=== PATIENT | male | born 1955 | race Caucasian/White ===

== ENCOUNTER 2022-01-06 16:49 | Emergency (ER) | payer MEDICARE, OTHER ==
[~2022-01-06] VITALS: Ht 185.4 cm; Wt 120.3 kg
[2022-01-06 17:13] VITALS: BP 153/121
[2022-01-06 17:17] LABS: BILIRUBIN,URINE NEGATIVE (NEGATIVE); CLARITY,URINE CLOUDY; COLOR,URINE YELLOW; GLUCOSE, URINE (UA) NEGATIVE (NEGATIVE); KETONES,URINE TRACE (NEGATIVE); LEUKOCYTE ESTERASE ,URINE NEGATIVE (NEGATIVE); NITRITE,URINE NEGATIVE (NEGATIVE); PROTEIN,URINE NEGATIVE (NEGATIVE)
[2022-01-06 17:26] LABS: BACTERIA,URINE TRACE /HPF; SQUAMOUS EPITHELIAL CELL,UR RARE /HPF; WBC,URINE RARE /HPF
--- NOTE | 2022-01-06 17:28 | ED General ---
General Chief Complaint: - Reproductive Stated Complaint: BLOOD IN URINE History of Present Illness Date Seen by Provider: January 06, 2022 Time Seen by Provider: 17:05 Initial Comments 66 year old male presents today per recommendation by [facility] following blood in his urine today. He reports recently flying in from [place] to visit a friend and look into buying a home in the [facility]. Upon arriving he reports having generalized fatigue, cough, shortness of breath with exertion, feeling febrile (never checked), and overall "not feeling right." This led him going to urgent care at [facility] yesterday at which point a urinalysis showed blood in his urine. 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 Later on when I was talking to the patient he reported filing a callous off his foot and having a sore that wouldn't stop bleeding from that. His friend was worried that it may be infected due to his history of MRSA infection. Towards the end of the exam he mentioned being hospitalized for heart events 3-4 times in the last few months in [place]. He admits to marijuana use and that he is known to snort meth occasionally with his most recent use yesterday upon urging by his friend that it would help his fatigue. (EMERY DUMONT) Initial Comments This is 66-year-old gentleman flew into the area from [place] several days ago. He did not bring his Eliquis and his last dose of Eliquis was the day before flying. 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 He guerline lly wears oxygen at 3 L at home but he did not bring an oxygen tank or concentrator with him. He has been more short of breath over the past few days and is having trouble even ambulating to the restroom. He admits to polysubstance abuse including marijuana and methamphetamines as recently as a couple of days ago. His visit to the [facility] walk-in clinic was 2 days ago, and he was advised to present to the emergency room at that time. He delayed his ER visit until today. He reports the only medications he has been taking since his arrival to [place] are aspirin and metoprolol. (TAD JEAN BAPTISTE MD) Allergies and Home Medications Allergies Coded Allergies: No Allergy Information Available (Unverified , 01/06/22) Patient Home Medication List Home Medication List Reviewed: Yes (TAD JEAN BAPTISTE MD) Review of Systems Review of Systems Constitutional: fever (never confirmed), malaise, weakness EENTM: No hearing loss, No vision loss, No throat pain Respiratory: cough, dyspnea on exertion; No short of breath Gastrointestinal: No abdominal pain, No constipation, No diarrhea, No nausea, No vomiting Genitourinary: No discharge, No dysuria; frequency (increased), hematuria (reported to him at [facility] but unable to see it himself) Skin: change in color (darkened skin on distal andrade), other (area that won't stop bleeding on 2nd phalanx of right foot) Psychiatric/Neurological: Denies Headache; Numbness (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) Hematologic/Lymphatic: No Symptoms Reported Immunological/Allergic: no symptoms reported (EMERY DUMONT) Past Afgrgfr-Ngpaad-Rasoqz Hx Patient Social History Tobacco Use?: Yes Tobacco type used: Cigarettes Smoking Status: Current Someday Smoker Use of E-Cig and/or Vaping dev: No Substance use?: Yes Substance type: Methamphetamine, Marijuana Substance frequency: Daily Alcohol Use?: No Pt feels they are or have been: No (EMERY DUMONT) Tobacco Use?: Yes Tobacco type used: Cigarettes Substance use?: Yes Additional substance use comme: UDS + FOR PCP, METH/AMPHETAMINES, THC ON 01/06/22 Substance frequency: Daily Alcohol Use?: Yes Alcohol Frequency: Couple times a week (DEEPTI RODRÍGUEZ DO) Immunizations Up To Date Influenza Vaccine Up-to-Date: No; Not Current (EMERY DUMONT) Past Medical History Surgeries: Yes (lipoma removal from lateral left chest) Valve Replacement (aortic valve replacement of unspecified type) (EMERY DUMONT) Physical Exam Vital Signs Vital Signs - First Documented 01/06/22 17:13 Temp 36.8 Pulse 79 Resp 22 B/P (MAP) 153/121 (132) Pulse Ox 97 O2 Delivery Room Air (TAD JEAN BAPTISTE MD) Vital Signs Capillary Refill : (EMERY DUMONT) Height, Weight, BMI Height: '" Weight: lbs. oz. kg; BMI Method: General Appearance: No Apparent Distress, Obese Eyes: Bilateral Eye Other (Miosis without response to light bilaterally) HEENT: Pharynx Normal, Moist Mucous Membranes Neck: Non Tender, Supple Respiratory: Lungs Clear, Normal Breath Sounds, No Respiratory Distress Cardiovascular: Regular Rate, Rhythm, Normal Peripheral Pulses, Other (slight ejection murmur at right 2nd intercostal space. Loud S2. ) Gastrointestinal: Normal Bowel Sounds, Non Tender Back: Normal Inspection, No CVA Tenderness, No Vertebral Tenderness Extremity: Normal Capillary Refill, Normal Range of Motion, No Calf Tenderness, Pedal Edema (1+ pitting edema of legs bilaterally with slight thickening and darkening of skin on distal shins bilaterally. ) Neurologic/Psychiatric: Oriented x3, Normal Mood/Affect, journeyman pressman II-XII Norm as Tested, Other (Patient was a poor historian about why he was here. Kept remembering different reasons as to why he was here. When the nurse asked him where he was he reports he didn't know due to not being from the area.) Skin: Warm/Dry, Other (darkening and slight thickening of skin on patients distal shins. Dry feet with thickened yellow nails. Small ulcer with clear margins and no erythema or discharge on dorsal, distal 2nd phalanx of right foot. ) Lymphatic: No Adenopathy (EMERY DUMONT) Progress/Results/Core Measures Suspected Sepsis SIRS Temperature: Pulse: Respiratory Rate: Blood Pressure / Mean: (EMERY DUMONT) Results/Orders Lab Results Laboratory Tests Test 01/06/22 16:53 01/06/22 17:08 01/06/22 17:43 01/06/22 18:05 Range/Units D-Dimer 1.15 H 0.00-0.49 UG/ML Urine Color YELLOW Urine Clarity CLOUDY Urine pH 6.0 5-9 Urine Specific [place] 1.020 1.016-1.022 Urine Protein NEGATIVE NEGATIVE Urine Glucose (UA) NEGATIVE NEGATIVE Urine Ketones TRACE H NEGATIVE Urine Nitrite NEGATIVE NEGATIVE Urine Bilirubin NEGATIVE NEGATIVE Urine Urobilinogen 1.0 < = 1.0 MG/DL Urine Leukocyte Esterase NEGATIVE NEGATIVE Urine RBC (Auto) 1+ H NEGATIVE Urine RBC NONE /HPF Urine WBC RARE /HPF Urine Squamous Epithelial Cells RARE /HPF Urine Crystals NONE /LPF Urine Bacteria TRACE /HPF Urine Casts NONE /LPF Urine Mucus NEGATIVE /LPF Urine Culture Indicated NO Urine Opiates Screen NEGATIVE NEGATIVE Urine Oxycodone Screen NEGATIVE NEGATIVE Urine Methadone Screen NEGATIVE NEGATIVE Urine Propoxyphene Screen NEGATIVE NEGATIVE Urine Barbiturates Screen NEGATIVE NEGATIVE Ur Tricyclic Antidepressants Screen NEGATIVE NEGATIVE Urine Phencyclidine Screen POSITIVE H NEGATIVE Urine Amphetamines Screen POSITIVE H NEGATIVE Urine Methamphetamines Screen POSITIVE H NEGATIVE Urine Benzodiazepines Screen NEGATIVE NEGATIVE Urine Cocaine Screen NEGATIVE NEGATIVE Urine Cannabinoids Screen POSITIVE H NEGATIVE Influenza Type A (RT-PCR) Not Detected Not Detecte Influenza Type B (RT-PCR) Not Detected Not Detecte SARS-CoV-2 RNA (RT-PCR) Not Detected Not Detecte White Blood Count 6.1 4.3-11.0 10^3/uL Red Blood Count 5.09 4.30-5.52 10^6/uL Hemoglobin 15.6 13.3-17.7 g/dL Hematocrit 47 40-54 % Mean Corpuscular Volume 92 80-99 fL Mean Corpuscular Hemoglobin 31 25-34 pg Mean Corpuscular Hemoglobin Concent 33 32-36 g/dL Red Cell Distribution Width 13.5 10.0-14.5 % Platelet Count 133 130-400 10^3/uL Mean Platelet Volume 8.6 L 9.0-12.2 fL Immature Granulocyte % (Auto) 1 % Neutrophils (%) (Auto) 60 42-75 % Lymphocytes (%) (Auto) 26 12-44 % Monocytes (%) (Auto) 10 0-12 % Eosinophils (%) (Auto) 2 0-10 % Basophils (%) (Auto) 1 0-10 % Neutrophils # (Auto) 3.7 1.8-7.8 10^3/uL Lymphocytes # (Auto) 1.6 1.0-4.0 10^3/uL Monocytes # (Auto) 0.6 0.0-1.0 10^3/uL Eosinophils # (Auto) 0.1 0.0-0.3 10^3/uL Basophils # (Auto) 0.0 0.0-0.1 10^3/uL Immature Granulocyte # (Auto) 0.1 0.0-0.1 10^3/uL Prothrombin Time 12.2 12.2-14.7 SEC INR Comment 0.9 0.8-1.4 Activated Partial Thromboplast Time 30 24-35 SEC Sodium Level 141 135-145 MMOL/L Potassium Level 3.9 3.6-5.0 MMOL/L Chloride Level 103 98-107 MMOL/L Carbon Dioxide Level 27 21-32 MMOL/L Anion Gap 11 5-14 MMOL/L Blood Urea Nitrogen 12 7-18 MG/DL Creatinine 1.11 0.60-1.30 MG/DL Estimat Glomerular Filtration Rate 72 BUN/Creatinine Ratio 11 Glucose Level 113 H 70-105 MG/DL Calcium Level 9.0 8.5-10.1 MG/DL Corrected Calcium 9.2 8.5-10.1 MG/DL Magnesium Level 2.0 1.6-2.4 MG/DL Total Bilirubin 0.4 0.1-1.0 MG/DL Aspartate Amino Transf (AST/SGOT) 19 5-34 U/L Alanine Aminotransferase (ALT/SGPT) 29 0-55 U/L Alkaline Phosphatase 100 40-136 U/L Myoglobin 39.8 10.0-92.0 NG/ML Troponin I < 0.028 <0.028 NG/ML C-Reactive Protein High Sensitivity 2.21 H 0.00-0.50 MG/DL B-Type Natriuretic Peptide 145.1 H <100.0 PG/ML Total Protein 7.2 6.4-8.2 GM/DL Albumin 3.7 3.2-4.5 GM/DL Serum Alcohol < 10 <10 MG/DL (TAD JEAN BAPTISTE MD) My Orders Orders - TAD JEAN BAPTISTE MD Ua Culture If Indicated (01/06/22 16:54) Cbc With Automated Diff (01/06/22 17:28) Magnesium (01/06/22 17:28) Chest 1 View, Ap/Pa Only (01/06/22 17:28) Ekg Tracing (01/06/22 17:28) Comprehensive Metabolic Panel (01/06/22 17:28) Myoglobin Serum (01/06/22 17:28) Protime With Inr (01/06/22 17:28) Partial Thromboplastin Time (01/06/22 17:28) O2 (01/06/22 17:28) Monitor-Rhythm Ecg Trace Only (01/06/22 17:28) Ed Iv/Invasive Line Start (01/06/22 17:28) Troponin I [place] (01/06/22 17:28) Bnp [place] (01/06/22 17:28) Hs C Reactive Protein (01/06/22 17:28) Influenza A And B By Pcr (01/06/22 17:32) Covid 19 Inhouse Test (01/06/22 17:32) Alcohol (01/06/22 17:35) Drug Screen Stat (Urine) (01/06/22 17:35) Fibrin Degradation Products (01/06/22 19:39) Ct Angio Chest W (01/06/22 20:15) (TAD JEAN BAPTISTE MD) Medications Given in ED Current Medications Medications Dose Ordered Sig/Tamika Route Start Time Stop Time Status Last Admin Dose Admin Azithromycin 500 mg ONCE ONCE PO 01/06/22 21:45 01/06/22 21:46 DC 01/06/22 21:40 500 MG Ceftriaxone Sodium/Dextrose 50 ml @ 100 mls/hr ONCE ONCE IV 01/06/22 21:45 01/06/22 22:10 DC 01/06/22 21:40 100 MLS/HR Enoxaparin Sodium 120 mg ONCE ONCE SQ 01/06/22 21:45 01/06/22 21:46 DC 01/06/22 22:04 120 MG Iohexol 100 ml ONCE ONCE IV 01/06/22 21:30 01/06/22 21:37 DC 01/06/22 21:19 85 ML Sodium Chloride 10 ml NEEDED PRN IV 01/06/22 21:30 01/06/22 22:10 DC 01/06/22 21:19 10 ML Sodium Chloride 100 ml ONCE ONCE IV 01/06/22 21:30 01/06/22 21:37 DC 01/06/22 21:19 70 ML (TAD JEAN BAPTISTE MD) Vital Signs/I&O 01/06/22 17:13 Temp 36.8 Pulse 79 Resp 22 B/P (MAP) 153/121 (132) Pulse Ox 97 O2 Delivery Room Air (TAD JEAN BAPTISTE MD) Vital Signs/I&O Capillary Refill : (EMERY DUMONT) Progress Note : Time: 19:47 Progress Note Patient was seen and examined after Emery Dumont, MS 3. Labs were relatively unremarkable. There was some questionable infiltrate in the left lower lobe. Oxygen saturation had been in the mid to upper 90s on 3 L. I have turned off his oxygen to see how he tolerates room air. So far he has been running in the 90 to 93% range. Because patient traveled without his Eliquis and has had i ncreased shortness of breath and fatigue as well as history of thrombotic events, I have ordered a D-dimer for further evaluation. If he needs CT angiogram, he will need a better established IV rather than the finger IV he has in the left hand. Patient's presentation is convoluted as he traveled without his oxygen and Eliquis. He also tested positive for numerous substances in his urine drug screen. D-dimer is pending at this time and care is being transitioned to Dr. Grant. (TAD JEAN BAPTISTE MD) Progress Note : Progress Note 2029--ASSUMED CARE FROM DR. JEAN BAPTISTE, CT CHEST ANGIOGRAM IS PENDING. PT IS ASYMPTOMATIC AT THIS TIME, VITALS STABLE, O2 SAT 97% ON ROOM AIR. NO COUGH NO DYSPNEA NO HYPOXIA NO FEVER VITALS STABLE AT DISMISSAL (DEEPTI RODRÍGUEZ DO) ECG Initial ECG Impression Date: January 06, 2022 Initial ECG Impression Time: 17:39 Initial ECG Rate: 62 Initial ECG Rhythm: Normal Sinus Comment Sinus rhythm with premature beats. No ST elevation or depression. No abnormal intervals or axis deviation. (TAD JEAN BAPTISTE MD) Diagnostic Imaging Diagonstic Imaging: Xray Plain Films/CT/US/NM/MRI: chest Comments Chest x-ray viewed by me and report reviewed. See report below: NAME: NELI HERNANDEZ [facility] REC#: [id number] PT STATUS: REG ER : 1955 PHYSICIAN: TAD JEAN BAPTISTE MD ADMIT DATE: 01/06/22/ER Signed Date of Exam:01/06/22 CHEST 1 VIEW, AP/PA ONLY EXAMINATION: Chest 1 view HISTORY: Chest pain COMPARISON: None available. FINDINGS: Heart size is mildly enlarged. There are low lung volumes. Mild left basilar opacities. No pleural effusion or pneumothorax. The osseous structures are intact. IMPRESSION: 1. Mild left basilar opacities which can be seen with atelectasis or consolidation. Dictated by: Dictated on workstation # [id number] Dict: 01/06/22 1800 Trans: 01/06/221812 [facility] [id number] Interpreted by: LAURA LUI DO Electronically signed by: LAURA LUI DO 01/06/221812 (TAD JEAN BAPTISTE MD) Comments CT CHEST ANGIOGRAM--PER RADIOLOGIST REPORT AT 2127 FINDINGS: Vascular: No filling defects within the pulmonary arteries. Thoracic aorta is normal in caliber. Thyroid: The thyroid is normal. Mediastinum: Heart size is normal without significant pericardial effusion. No suspicious lymphadenopathy. Lungs and airways: The lungs are clear without consolidation, pleural effusion or pneumothorax. Atelectasis in the dependent right lung. The airways are normal. Upper abdomen: The subphrenic structures are normal. Musculoskeletal: Degenerative changes of the spine without suspicious osseous lesion or compression fracture. Chronic left rib fracture. IMPRESSION: No findings of pulmonary embolus or other acute abnormality in the chest. Reviewed: Reviewed by Me (DEEPTI RODRÍGUEZ DO) Departure Communication (Admissions) 2129--SPOKE WITH DR. HARTMANN, WILL SEE PT IN FOLLOW UP IN CLINIC TOMORROW. (DEEPTI RODRÍGUEZ DO) Impression Primary Impression: Dyspnea on exertion Additional Impressions: Polysubstance abuse Non-compliance Elevated d-dimer Disposition: 01 HOME, SELF-CARE Condition: Stable Departure-Patient Inst. Decision time for Depature: 21:34 (DEEPTI RODRÍGEUZ DO) Referrals: KEE HARTMANN MD [facility] Patient Instructions: Polysubstance Use Disorder (DC), Shortness of Breath, Adult ED Add. Discharge Instructions: NO DRUGS!!! NO SMOKING!!! FOLLOW UP WITH [facility] TOMORROW FOR FURTHER CARE CONTINUE YOUR ASPIRIN AND METOPROLOL All discharge instructions reviewed with patient and/or family. Voiced understanding. Copy Copies To 1: KEE HARTMANN MD, CARSON January 06, 2022 17:28 TAD JEAN BAPTISTE MD January 06, 2022 19:47 DEEPTI RODRÍGUEZ DO January 06, 2022 20:51
[2022-01-06 18:05] LABS: AMPHETAMINE SCREEN, URINE POSITIVE (NEGATIVE); BARBITURATE SCREEN URINE NEGATIVE (NEGATIVE); BENZODIAZEPINES SCREEN URINE NEGATIVE (NEGATIVE); CANNABINOID SCREEN, URINE POSITIVE (NEGATIVE); COCAINE SCREEN URINE NEGATIVE (NEGATIVE); METHADONE STAT NEGATIVE (NEGATIVE); OPIATE SCREEN URINE NEGATIVE (NEGATIVE); OXYCODONE STAT NEGATIVE (NEGATIVE); PROPOXYPHENE STAT NEGATIVE (NEGATIVE); TRICYCLIC ANTIDEPRESSANTS SCRE NEGATIVE (NEGATIVE)
--- NOTE | 2022-01-06 18:08 | Diagnostic Imaging Report ---
EXAMINATION: Chest 1 view HISTORY: Chest pain COMPARISON: None available. FINDINGS: Heart size is mildly enlarged. There are low lung volumes. Mild left basilar opacities. No pleural effusion or pneumothorax. The osseous structures are intact. IMPRESSION: 1. Mild left basilar opacities which can be seen with atelectasis or consolidation. Dictated by: Dictated on workstation # [id number]
[2022-01-06 18:16] LABS: BASOPHILS % (AUTO) 1 % (0-10); EOSINOPHILS # (AUTO) 0.1 10^3/uL (0.0-0.3); EOSINOPHILS % (AUTO) 2 % (0-10); HEMATOCRIT 47 % (40-54); HEMOGLOBIN 15.6 g/dL (13.3-17.7); LYMPHOCYTES # (AUTO) 1.6 10^3/uL (1.0-4.0); LYMPHOCYTES % (AUTO) 26 % (12-44); MEAN CORPUSCULAR HEMOGLOBIN 31 pg (25-34); MEAN CORPUSCULAR HGB CONC 33 g/dL (32-36); MEAN CORPUSCULAR VOLUME 92 fL (80-99); MEAN PLATELET VOLUME 8.6 fL (9.0-12.2); MONOCYTES # (AUTO) 0.6 10^3/uL (0.0-1.0); MONOCYTES % (AUTO) 10 % (0-12); NEUTROPHILS # (AUTO) 3.7 10^3/uL (1.8-7.8); NEUTROPHILS % (AUTO) 60 % (42-75); PLATELET COUNT 133 10^3/uL (130-400); WHITE BLOOD COUNT 6.1 10^3/uL (4.3-11.0)
[2022-01-06 18:31] LABS: ALBUMIN 3.7 GM/DL (3.2-4.5); POTASSIUM 3.9 MMOL/L (3.6-5.0)
[2022-01-06 18:32] LABS: INR 0.9 (0.8-1.4); PROTHROMBIN TIME PATIENT 12.2 SEC (12.2-14.7)
[2022-01-06 18:34] LABS: TOTAL PROTEIN 7.2 GM/DL (6.4-8.2)
[2022-01-06 18:35] LABS: BILIRUBIN,TOTAL 0.4 MG/DL (0.1-1.0)
[2022-01-06 18:37] LABS: CREATININE SERUM 1.11 MG/DL (0.60-1.30)
--- NOTE | 2022-01-06 21:26 | Diagnostic Imaging Report ---
EXAMINATION: CT angiography of the chest. TECHNIQUE: Contrast enhanced thin section helical images were obtained through the chest with intravenous contrast timed for the optimal opacification of the arterial structures per CTA protocol. Post-processing, reconstructions and interpretation of angiographic images of the vessels was performed. 3D MIP reconstructions were performed and reviewed. All CT scans use one or more of the following dose optimizing techniques: automated exposure control, MA and/or KvP adjustment based on patient size and exam type or iterative reconstruction. HISTORY: PE suspected, high prob COMPARISON: None available. FINDINGS: Vascular: No filling defects within the pulmonary arteries. Thoracic aorta is normal in caliber. Thyroid: The thyroid is normal. Mediastinum: Heart size is normal without significant pericardial effusion. No suspicious lymphadenopathy. Lungs and airways: The lungs are clear without consolidation, pleural effusion or pneumothorax. Atelectasis in the dependent right lung. The airways are normal. Upper abdomen: The subphrenic structures are normal. Musculoskeletal: Degenerative changes of the spine without suspicious osseous lesion or compression fracture. Chronic left rib fracture. IMPRESSION: No findings of pulmonary embolus or other acute abnormality in the chest. Dictated by: Dictated on workstation # [id number]
[2022-01-06] MEDS ORDERED: IOHEXOL 350 MG/ML 100 ML (OMNIPAQUE 350) VIAL IV ONE (21:30)
[2022-01-06] MEDS ORDERED: NS 100 ML (IVPB) BAG IV ONE (21:30)
[2022-01-06] MEDS ORDERED: CATHETER FLUSH 10 ML SYR IV PRN (21:30)
[2022-01-06] MEDS ORDERED: HOLD METFORMIN - RECEIVED CONTRAST 20 ML VIAL IV SCH (21:30)
[2022-01-06] MEDS ORDERED: ENOXAPARIN 120 MG/0.8 ML (LOVENOX) SQ ONE (21:45)
[2022-01-06] MEDS ORDERED: AZITHROMYCIN 250 MG TAB (ZITHROMAX) PO ONE (21:45)
[2022-01-06] MEDS ORDERED: cefTRIAXone 1 GM PRE-MIX 50 ML IV ONE (21:45)
== END 2022-01-06 22:10 | disposition home or self-care (01) ==
LOC: ER 16:53
DX: R06.09 Other forms of dyspnea (principal); R79.1 Abnormal coagulation profile; F12.10 Cannabis abuse, uncomplicated; F15.10 Other stimulant abuse, uncomplicated; F16.10 Hallucinogen abuse, uncomplicated; T45.516A Underdosing of anticoagulants, initial encounter; F17.210 Nicotine dependence, cigarettes, uncomplicated; Z91.14 Patient's other noncompliance with medication regimen; Z79.01 Long term (current) use of anticoagulants; Z86.718 Personal history of other venous thrombosis and embolism; Z86.14 Personal history of Methicillin resistant Staphylococcus aureus infection; Z99.81 Dependence on supplemental oxygen; Z95.4 Presence of other heart-valve replacement; Z20.822 Contact with and (suspected) exposure to COVID-19; Z79.82 Long term (current) use of aspirin; Z79.899 Other long term (current) drug therapy
CPT/HCPCS: 71045; 71275; 80053; 80306; 81000; 83735; 83874; 83880; 84484; 85025; 85379; 85610; 85730; 86141; 87636; 93005; 93041; 96372; 96374; 99284; G0480; 36415; 80320